=== PATIENT | male | born 1945 | race Caucasian/White ===

== ENCOUNTER 2017-10-18 08:51 | Emergency (ER) | payer OTHER ==
[~2017-10-18] VITALS: Ht 182.9 cm; Wt 141.0 kg
[~2017-10-18 08:51] MED LIST: ASPI-183 PO
[2017-10-18 08:54] VITALS: BP 146/104; PULSE 112; RESP 16; TEMP 97.6; O2SAT 95
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
== END 2017-10-18 09:56 | disposition left against medical advice (07) ==
LOC: PHEFT 08:51
DX: M25.531 Pain in right wrist (principal); Z53.21 Procedure and treatment not carried out due to patient leaving prior to being seen by health care provider; M79.601 Pain in right arm; V19.3XXA Pedal cyclist (driver) (passenger) injured in unspecified nontraffic accident, initial encounter; Y93.55 Activity, bike riding; Z72.89 Other problems related to lifestyle
CPT/HCPCS: 99281